=== PATIENT | male | born 1955 | race Hispanic/Latino ===

== ENCOUNTER 2020-04-02 18:40 | Inpatient (IN) | payer MEDICARE ==
[~2020-04-02] VITALS: Ht 180.3 cm; Wt 90.7 kg
[2020-04-02 19:25] LABS: BASOPHILS % 0.4 % (0.0-1.0); EOSINOPHILS # (AUTO) 0.2 (0.0-0.4); EOSINOPHILS % 2.3 % (0.0-6.0); HEMOGLOBIN 13.9 g/dL (14.0-18.0); LYMPHOCYTES # (AUTO) 1.7 (1.0-3.2); LYMPHOCYTES % 21.8 % (18.0-39.1); MEAN CORPUSCULAR HEMOGLOBIN 28.5 pg (28-32); MEAN CORPUSCULAR HGB CONC 33.1 g/dL (31-35); MEAN CORPUSCULAR VOLUME 86.2 fL (81-99); MONOCYTES # (AUTO) 0.9 (0.2-0.8); MONOCYTES % 11.8 % (4.4-11.3); NEUTROPHILS % 63.1 % (38.7-80.0); PLATELET COUNT 298 x10e3/uL (140-360); RED BLOOD COUNT 4.87 x10e6/uL (4.3-5.7); RED CELL DISTRIBUTION WIDTH 13.8 % (11.7-14.4)
[2020-04-02 19:34] LABS: INR 0.95; PROTHROMBIN TIME 13.2 seconds (11.9-14.5)
[2020-04-02 19:35] LABS: PARTIAL THROMBOPLASTIN TIME 27.9 seconds (23.8-35.5)
[2020-04-02 19:42] LABS: ALANINE AMINOTRANSFERASE 20 IU/L (0-55); ALBUMIN 3.8 g/dL (3.5-5.0); ALBUMIN/GLOBULIN RATIO 1.2 (0.8-2.0); ALKALINE PHOSPHATASE 95 IU/L (40-150); ANION GAP 11.8 mmol/L (8-16); BLOOD UREA NITROGEN 19 mg/dL (7-26); BUN/CREATININE RATIO 22 (6-25); CALCIUM 9.3 mg/dL (8.4-10.2); CARBON DIOXIDE 25 mmol/L (22-29); CHLORIDE 108 mmol/L (98-107); CREATINE KINASE 152 IU/L (30-200); CREATININE, SERUM 0.88 mg/dL (0.72-1.25); EST GLOMERULAR FILTRATION RATE > 60 ML/MIN (60-); GLUCOSE 129 mg/dL (74-118); POTASSIUM 3.8 mmol/L (3.5-5.1); SODIUM 141 mmol/L (136-145)
[2020-04-02 21:52] VITALS: BP 123/76
[2020-04-02 21:53] VITALS: BP 123/76
[2020-04-03] VITALS (12 sets, daily range): BP systolic 97–154; BP diastolic 58–92
[2020-04-03 05:26] LABS: CREATINE KINASE 98 IU/L (30-200)
[2020-04-03] MEDS ORDERED: ACETAMINOPHEN 325 MG TAB PO PRN (06:30)
[2020-04-03] MEDS ORDERED: DOCUSATE SODIUM 100 MG CAP PO PRN (06:30)
[2020-04-03] MEDS ORDERED: ZOLPIDEM TARTRATE 5 MG TAB PO PRN (06:30)
[2020-04-03] MEDS ORDERED: ONDANSETRON HCL INJ 2MG/ML 2ML 2 MG/ML VIAL IV PRN (06:30)
[2020-04-03] MEDS: FAMOTIDINE 20 MG TAB PO SCH ×3 (07:30→17:07)
[2020-04-03] MEDS ORDERED: ASPIRIN 81 MG CHEW TAB PO SCH (09:00)
[2020-04-03] MEDS: SODIUM CHLORIDE 0.9% 1000ML 1,000 ML IV SCH ×2 (10:00)
[2020-04-03] MEDS ORDERED: SODIUM CHLORIDE 0.9% 1000ML 1,000 ML ONE (10:36)
[2020-04-03] MEDS ORDERED: HEPARIN SOD (PORCINE) 1000 UNIT/ML 30ML ONE (10:36)
[2020-04-03] MEDS ORDERED: HEPARIN SOD/SOD CHLORIDE 2,000 ML ONE (10:36)
[2020-04-03] MEDS ORDERED: LIDOCAINE HCL 2% LOCAL 20 ML VIAL ONE (10:36)
[2020-04-03] MEDS ORDERED: IOPAMIDOL 370 MG/ML 200 ML INFUS..BTL INJ ONE ×2 (10:36→11:24)
[2020-04-03] MEDS ORDERED: NITROGLYCERIN/D5W 200 MCG/ML 250 ML ONE (10:37)
[2020-04-03] MEDS ORDERED: VERAPAMIL HCL 2.5 MG/ML 2 ML VIAL ONE (10:37)
[2020-04-03] MEDS ORDERED: MIDAZOLAM HCL 2 MG/2 ML VIAL ONE ×2 (10:57→11:35)
[2020-04-03] MEDS ORDERED: ONDANSETRON HCL INJ 2MG/ML 2ML 2 MG/ML VIAL ONE (10:57)
[2020-04-03] MEDS ORDERED: FENTANYL CITRATE/PF 100MCG/2 ML INJ ONE ×2 (10:58)
[2020-04-03] MEDS ORDERED: ASPIRIN 325 MG TAB ONE (11:41)
[2020-04-03] MEDS ORDERED: CLOPIDOGREL BISULFATE 75 MG TAB ONE (11:41)
[2020-04-03] MEDS ORDERED: MORPHINE SULFATE INJ 4 MG/ML INJ 1ML ONE ×2 (12:36→12:59)
[2020-04-03] MEDS ORDERED: NITROGLYCERIN 0.4 MG SUBL ONE (12:36)
[2020-04-03] MEDS ORDERED: ATROPINE SULFATE 0.1 MG/ML 10ML SYR ONE (12:54)
[2020-04-03 15:30] LABS: CREATINE KINASE MB 2.3 ng/mL (0-5.0)
[2020-04-03] MEDS ORDERED: ENOXAPARIN SOD INJ 40 MG/0.4 ML SYR SC SCH (17:00)
[2020-04-03] MEDS ORDERED: PLAVIX75 MG PO (17:38)
== END 2020-04-03 19:09 | disposition home or self-care (01) | DRG 247 ==
LOC: ER 19:35 → ERHOLD 20:11 → IMCU 21:07
PROVIDERS: ADMIT Internal Medicine; ATTEND Internal Medicine
PROC: 027034Z Dilation of Coronary Artery, One Artery with Drug-eluting Intraluminal Device, Percutaneous Approach (ICD-10-PCS; principal; 2020-04-03)
PROC: 4A023N7 Measurement of Cardiac Sampling and Pressure, Left Heart, Percutaneous Approach (ICD-10-PCS; 2020-04-03)
PROC: B2111ZZ Fluoroscopy of Multiple Coronary Arteries using Low Osmolar Contrast (ICD-10-PCS; 2020-04-03)
PROC: B2151ZZ Fluoroscopy of Left Heart using Low Osmolar Contrast (ICD-10-PCS; 2020-04-03)
DX: I25.110 Atherosclerotic heart disease of native coronary artery with unstable angina pectoris (principal); I50.22 Chronic systolic (congestive) heart failure; R73.03 Prediabetes; I49.8 Other specified cardiac arrhythmias; E66.9 Obesity, unspecified; Z68.27 Body mass index [BMI] 27.0-27.9, adult; Z95.5 Presence of coronary angioplasty implant and graft; I25.10 Atherosclerotic heart disease of native coronary artery without angina pectoris; I11.0 Hypertensive heart disease with heart failure; I25.2 Old myocardial infarction; Z11.59 Encounter for screening for other viral diseases
CPT/HCPCS: 36415; 71046; 75605; 80053; 80061; 82550; 82553; 83036; 84484; 85025; 85610; 85730; 92921; 92928; 93005; 93306; 93454; 99152; 99153; 99284; C1887; C1894; J1644; J1650; J2001; J2250; J2270; J2405; J3010; J7030; Q9967; U0002

== ENCOUNTER 2020-04-10 19:37 | Emergency (ER) | payer MEDICARE ==
[~2020-04-10] VITALS: Ht 170.2 cm; Wt 90.7 kg
[~2020-04-10 19:37] MED LIST: PLAVIX75 MG PO
--- NOTE | 2020-04-10 20:26 | Emergency Department Note ---
History of Present Illnes History of Present Illness Chief Complaint: General Medicine Complaints History of Present Illness This is a 65 year old male s/p PCI presents to the ED for R groin pain s/p 1 week Historian: Patient Arrival Mode: Car Onset (how long ago): week(s) (1) Location: R groin Radiation: Reports non-radiation Severity: mild Onset quality: gradual Duration (how long): week(s) (1) Timing of current episode: constant Progression: unchanged Chronicity: new Context: Reports recent surgery Relieving factors: none Exacerbating factors: none Associated symptoms: Denies denies other symptoms, Denies confusion, Denies chest pain, Denies cough, Denies diaphoresis, Denies fever/chills, Denies headaches, Denies loss of appetite, Denies malaise, Denies nausea/vomiting, Denies rash, Denies seizure, Denies shortness of breath, Denies syncope, Denies weakness, Denies other Treatments prior to arrival: none Past Medical/Family History Physician Review I have reviewed the patient's past medical and family history. Any updates have been documented here. Past Medical History Recent Fever: No Clinical Suspicion of Infectio: No New/Unexplained Change in Ment: No Past Medical History: Hypertension, Diabetes, CHF, NH, Depression, Hyperlipedemia Past Surgical History: PCI Social History Smoking Cessation: Never Smoker Alcohol Use: None Any Illegal Drug Use: No Review of Systems Review of Systems Constitutional: Reports no symptoms EENTM: Reports no symptoms Cardiovascular: Reports no symptoms Respiratory: Reports no symptoms Gastrointestinal: Reports no symptoms Genitourinary: Reports no symptoms Musculoskeletal: Reports no symptoms Integumentary: Reports ecchymosis Neurological: Reports no symptoms Psychological: Reports no symptoms Endocrine: Reports no symptoms Hematological/Lymphatic: Reports no symptoms Physical Exam Related Data Allergies: Coded Allergies: No Known Allergies (Unverified , 04/02/20) Vital signs reviewed: Yes Physical Exam CONSTITUTIONAL Constitutional: Present well-developed, Present well-nourished HENT HENT: Present normocephalic, Present atraumatic, Present oropharynx clear/moist, Present nose normal HENT L/R: Present left ext ear normal, Present right ext ear normal EYES Eyes: Reports PERRL, Reports conjunctivae normal NECK Neck: Present ROM normal PULMONARY Pulmonary: Present effort normal, Present breath sounds normal CARDIOVASCULAR Cardiovascular: Present regular rhythm, Present heart sounds normal, Present capillary refill normal, Present normal rate GASTROINTESTINAL Abdominal: Present soft, Present nontender, Present bowel sounds normal GENITOURINARY Genitourinary: Present exam deferred SKIN Skin: Present warm, Present dry, Present other (6 x 2 contusion R groin) MUSCULOSKELETAL Musculoskeletal: Present ROM normal NEUROLOGICAL Neurological: Present alert, Present oriented x 3, Present no gross motor or sensory deficits PSYCHOLOGICAL Psychological: Present mood/affect normal, Present judgement normal Results Imaging Imaging results reviewed: Yes Impressions R groin arterial duplex : neg for pseudoaneuyrsm Assessment & Plan Medical Decision Making MDM Diff Dx : pseudoaneurysm Assessment & Plan Final Impression: (1) Contusion of groin, right Depart Disposition: HOME, SELF-jail Meds Reported Medications Clopidogrel Bisulfate* (PLAVIX) 75 Mg Tablet, 75 MG PO DAILY, #30 TAB 04/03/20 FELICIA GRIFFIN DO Apr 10, 2020 20:26
[2020-04-10 21:58] VITALS: BP 120/65
--- OUTSIDE RECORDS SUMMARY | 2020-04-10 22:07 | XMS REPORT | Continuity of Care Document ---
Author Author [facility] t Organization [facility] [place], [place] Address [address] [place] [address] Phone Unavailable Care Team Providers Care Lithographic Artist Name Role Phone Rajat PATEL PCP Loyda Tai Attphys Unavailable Nilsa Flores Attphys Leslie REINOSO, M Nasser Attphys Rohan REINOSO, A Lien Attphys Rubi REINOSO, Jony Attphys Payers Payer Name Policy Type Policy Number Effective Date Expiration Date S mariam I and love and you [employer] HE[employer]PRING [id number] 20-PresentMaps Contracted [id number] 2020 00:00:00 [facility] HEALTH SPRING [facility]ONCIGULF [facility] HEALTH SPRI NG [id number] [address] xxxxxxxx 2020 00:00:00 [facility] YPDV-AEDTYEX-WUR [id number]/[id number] [place] [address] xxxxxxx 2020 00:00:00 2030 2 3:59:59 [facility] Problems Condition Name Condition Details Condition Category Status Onset Date Resolution Date Last Treatment Date Treating Clinician Comments Source Vertigo Vertigo Disease Active 2017-02-28 00:00:00 [facility] Bilateral hearing loss Bilateral hearing loss Disease Active 2017-02-28 00:00:00 [facility] Heart failure, NYHA class 3 Heart failure, NYHA class 3 Disease Active 2016-12-14 00:00:00 Overview: 30 -35% mildly dilated LV, inferior/anterolateral RWMA [facility] Internal hemorrhoids Internal hemorrhoids Disease Active 00:00:00 [facility] 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 Prediabetes Prediabetes Disease Active 2016-07-29 00:00:00 [facility] Chest wall pain Chest wall pain Disease Active 2016-02-18 00:00:00 [facility] CAD in [place] artery CAD in [place] artery Disease Active 00:00:00 [facility] Shortness of breath Problem Active [facility] Myocardial infarction Myoc ardial infarction Active Problem 07/09/2015 [facility] Problem Active 2015-07-09 03:17: 59 [facility] Sewell Diabetes mellitus Diab etes mellitus Active Problem 07/09/2015 [facility] Problem Active 2015-07-09 03:17:59 Anthony Sewell Coronary atherosclerosis of [place] coronary vessel Coronary atherosclerosis of [place] coronary vessel Active Problem 07/09/2015 [facility] Problem Active 2015-07-09 03:17[facility] Ankl e pain Active Problem 07/09/2015 [facility] Problem Active 2015-07-09 03:17:59 [facility] Allergies, Adverse Reactions, Alerts Allergy Name Allergy Type Status Severity Reaction(s) Onset Date Inacti ve Date Treating Clinician Comments Source JodiA. N.KHelen.A. Active Info Not Available 2015-06-10 00:00:00 [facility] Social History Social Habit Start Date Stop Date Quantity Comments Source Sex Assigned At [facility] Alcohol intake 2020-01-29 00:00:00 2020-01-29 00:00:00 Current non-drinker of alcohol (finding) [facility] History SDOH Food Worry 2018-01-10 00:00:00 2018-01-10 00:00:00 1 [facility] History SDOH Food Scarcity 2018-01-10 00:00:00 2018-01-10 00:00:00 1 [facility] Caffeine: 2015-06-10 00:00:00 2015-06-10 00:00:00 [facility] Smoking Status Start Date Stop Date Source Never smoker [facility] Medications Ordered Medication Name Filled Medication Name Start Date Stop Da te Current Medication? Ordering Clinician Indication Dosage Frequency Signature (SIG) Comments Components Source metoprolol succinate (TOPROL XL) 25 mg extended release tabl et 2020-01-14 00:00:00 2021-01-08 23:59:00 Yes CAD in [place] artery 25mg QD Take 1 tablet by mouth daily for 360 days. [facility] lisinopriL (PRINIVIL, ZESTRIL) 20 mg tablet 2019 00:00:00 2021-01-08 23:59:00 Yes CAD in [place] artery 20mg QD Take 1 tablet by mouth daily for 360 days. [facility] nitroGLYCERIN (NITROSTAT) 0.4 mg sublingual tablet 2019-12 00:00:00 Yes Chest pain, unspecified type Dis solve 1 tablet under the tongue every 5 minutes as needed, up to 3 times. If chest pain persists, call 911. [facility] lisinopriL (PRINIVIL) 5 mg tablet 2020-01-07 00:00:00 2019 00:00:00 No CAD in [place] artery 10mg QD Take 2 tablets by mouth daily . [facility] clopidogreL (PLAVIX) 75 mg tablet 2019-08-07 00:00:00 Yes CAD in [place] artery 75mg QD Take 1 tablet by mouth daily. [facility] atorvastatin (LIPITOR) 80 mg tablet 2019-08-07 00:00:00 Yes CAD in [place] artery 80mg Take 1 tablet by mouth at bedtime nightly. [facility] isosorbide mononitrate (IMDUR) 30 mg extended release tablet 2019-08-07 00:00:00 Yes CAD in [place] artery 30mg QD Take 1 tablet b y mouth daily. [facility] spironolactone (ALDACTONE) 25 mg tablet 2019-08-07 00:00:00 Yes CAD in [place] artery 25mg QD Take 1 tablet by mouth daily. [facility] famotidine (PEPCID) 20 mg tablet 2019-08-07 00:00:00 Yes Gastroesophageal reflux disease, esophagitis presence not specified 20mg Q.5D Take 1 tablet by mouth 2 times daily. [facility] metFORMIN (GLUCOPHAGE XR) 500 mg ER extended release tablet 2019-08-07 00:00:00 Yes Prediabetes 500mg QD Take 1 t ablet by mouth daily (with breakfast). [facility] mometasone (NASONEX) 50 mcg/actuation nasal spray 2019-08-07 00:00:00 Yes Allergic rhinitis, unspecified seasonality, unspecified trigger 2{spray} QD 2 Sprays by each nostril route daily. [facility] lisinopriL (PRINIVIL) 5 mg tablet 2019-08-07 00:00:00 2019 00:00:00 No CAD in [place] artery 10mg QD Take 2 tablets by mouth daily . [facility] tiZANidine (ZANAFLEX) 4 mg tablet 2019-02-07 00:00:00 Yes Cervical muscle pain 4mg Take 1 tablet by mouth every 12 hours as needed for Muscle Spasms. [facility] metFORMIN (GLUCOPHAGE XR) 500 mg ER extended release tablet 2019-02-07 00:00:00 2019-08-07 00:00:00 No Prediabetes 500mg QD Take 1 tablet by mouth daily (with breakfast). [facility] amitriptyline (ELAVIL) 25 mg tablet 2018-12-17 00:00:00 Yes Cervical muscle pain 25mg Take 1 tablet by mouth at bedtime nightly. [facility] clopidogrel (PLAVIX) 75 mg tablet 2018-12-12 00:00:00 2019 00:00:00 No CAD in [place] artery 75mg QD Take 1 tablet by mouth daily. [facility] atorvastatin (LIPITOR) 80 mg tablet 2018-12-12 00:00:0 0 2019-08-07 00:00:00 No CAD in [place] artery 80mg Take 1 tablet by mouth at b edtime nightly. [facility] isosorbide mononitrate (IMDUR) 30 mg extended release tablet 2018-12-12 00:00:00 2019-08-07 00:00:00 No CAD in [place] artery 30mg QD Take 1 tablet by mouth daily. [facility] lisinopril (PRINIVIL) 5 mg tablet 2018-12-12 00:00:00 2019 00:00:00 No CAD in [place] artery 10mg QD Take 2 tablets by mouth daily . [facility] spironolactone (ALDACTONE) 25 mg tablet 00:00:00 2019-08-07 00:00:00 No CAD in [place] artery 25mg QD Take 1 tablet by m outh daily. [facility] famotidine (PEPCID) 20 mg tablet 2018-12-12 00:00:00 2019-07 00:00:00 No Gastroesophageal reflux disease, esophagitis presence not specified 20mg Q.5D Take 1 tablet by mouth 2 times daily. [facility] zinc oxide 15 % Crea 2018-05-03 00:00:00 Yes Paronychia of great toe of right foot 1{application} Q.5D Apply 1 Application to affected area 2 times daily. [facility] acetaminophen-codeine (TYLENOL/CODEINE #3) 300-30 mg per tab let 2018-05-03 00:00:00 Yes Chronic tension-type headache, intractab le 1{tbl} Take 1 tablet by mouth daily as needed for Pain. [facility] gabapentin (NEURONTIN) 400 mg capsule 2018-02-21 00:00:00 Yes Cervical neck pain with evidence of disc disease 400mg Take 1 capsule by mouth 3 times daily (incr) (d/c 300 mg). [facility] meclizine (ANTIVERT) 25 mg Tab 2017-02-28 00:00:00 Yes Vertigo 25mg Take 1 tablet by mouth 3 times daily as needed ((For dizziness)). [facility] polyethylene glycol (GOLYTELY) 236-22.74-6.74 -5.86 gram ora l solution 2016-09-07 00:00:00 Yes Rectal bleeding Add lukewarm drinking water to the fill cherelle (4 liters) and shake. Drink as directed by your doctor.. [facility] clopidogrel 2015-07-09 03:17:59 Yes Wolf Davis 1 tab(s) [facility] atorvastatin 2015-07-09 03:17:59 Yes Wolf Davis 1 tab(s) [facility] metformin 2015-07-09 03:17:59 Yes Wolf Davis 1 tab(s) [facility] multivitamin 2015-07-09 03:17:59 Yes Wolf Davis 1 cap(s) [facility] aspirin 2015-07-09 03:17:59 Yes Wolf Davis 1 ta b(s) [facility] lisinopril 2015-06-01 00:00:00 Yes Wolf Davis 1 tab(s) [facility] Clopidogrel Bisulfate (Plavix) 75 Mg TABLET Clopidogre l Bisulfate (Plavix) 75 Mg TABLET Yes 75 Daily [facility] Immunizations Ordered Immunization Name Filled Immunization Name Date Status Comments Source Influenza, Vaccine <FLUCELVAX>(Preservative-Free) 2018-05-03 00:00:00 Completed [facility] PPV 23 (Pneumococcal Polysaccharide 23 Valent) 2017-10 00:00:00 Completed [facility] Herpes Zoster Vaccine In Clinic 2016-06-03 00:00:[address] [facility] Influenza Vaccine 2016-05-20 00:00:00 [facility] Vital Signs Vital Name Observation Time Observation Value Comments Source Body Temperature 2020-04-03 16:00:00 98.0 [degF] [facility] Heart Rate 2020-04-03 16:00:00 58 /min [facility] Respiratory rate 2020-04-03 16:00:00 20 /min [facility] BP Systolic 2020-04-03 16:00:00 154 mm[Hg] [facility] BP Diastolic 2020-04-03 16:00:00 86 mm[Hg] [facility] Oxygen saturation by Pulse oximetry 2020-04-03 16:00:00 97 /min [facility] BMI (Body Mass Index) 2020-04-02 21:49:00 27.9 kg/m2 [facility] Weight 2020-04-02 18:43:00 200 [lb_av] [facility] Heart rate 2020-01-29 09:25:00 52 /min [facility] Respiratory rate 2020-01-29 09:25:00 23 /min [facility] Oxygen saturation in Arterial blood by Pulse oximetry 01-28 09:25:00 100 /min [facility] Systolic blood pressure 2020-01-29 09:24:00 142 mm[Hg] [facility] Diastolic blood pressure 2020-01-29 09:24:00 87 mm[Hg] [facility] Body height 2020-01-29 07:54:00 180.3 cm [facility] Body weight 2020-01-29 07:54:00 88.451 kg [facility] BMI 2020-01-29 07:54:00 27.20 kg/m2 [facility] Body temperature 2020-01-14 10:45:00 37.22 [facility] Diastolic (mm Hg) 2015-06-10 20:00:00 [facility] orial [place]nel[place] Systolic (mm Hg) 2015-06-10 20:00:00 Chente rial [place] Weight 2015-06-10 20:00:00 [facility] Height 2015-06-10 20:00:00 [facility] Diastolic (mm Hg) 2015-06-01 20:30:00 [facility] [place] Systolic (mm Hg) 2015-06-01 20:30:00 [facility]te [facility] [place] Weight 2015-06-01 20:30:00 [facility] [place] Height 2015-06-01 20:30:00 [facility] Procedures Procedure Date / Time Performed Performing Clinician [facility] SARS-COV2/RT-PCR ([facility]) 2020-04-03 05:25:00 Phill Flores [facility] X-ray of chest, two views 2020-04-02 00:00:[address] [facility] MYOCARDIAL PERFUSION SPECT REST/STRES MULTIPLE 2020-01-29 10 :25:50 Lien Fuchs [facility] STRESS TREADMILL - TRACING ONLY (PROSOLVE) 2020-01-29 0 9:10:10 Steve Smith [facility] NON-INVASIVE PROC ECHOCARDIOGRAM 2-D W/O CONTRAST (PROSOLVE) 2019-12-25 07:06:00 Rubi [facility] FECAL OCCULT BLOOD 2019-08-14 13:35:00 Jony Braga [facility] alth XRAY CHEST 2 VIEWS 2019-08-07 13:04:15 Jony Braga alth Plan of Care Planned Activity Planned Date Details Comments Source Future Scheduled Test 2026-09-12 00:00:00 Screening for dilshad gnant neoplasm of colon (procedure) [code = 108904457] [facility] Future Scheduled Test 2020-02-27 00:00:00 IMM Influenza Seas onal Feb to July (>/= 19 yrs) [code = IMM Influenza Seasonal Feb to July (>/= 19 yrs)] [facility] Scheduled Test 2020-01-28 00:00:00 INFLUENZA VACCINE (#1) [code = INFLUENZA VACCINE (#1)] [facility] Future Scheduled Test 2020-01-28 00:00:00 Medicare IPPE (WEL COME TO MEDICARE) [code = Medicare IPPE (WELCOME TO MEDICARE)] [facility] Future Scheduled Test 2019-12-18 00:00:00 CORONARY ARTERY DI SEASE AGE 18 AND UP [code = CORONARY ARTERY DISEASE AGE 18 AND UP] [facility] Scheduled Test 1991 00:00:00 Lipid panel (proce dure) [code = 94878226] [facility] Future Scheduled Test 1956 00:00:00 Screening for dilshad gnant neoplasm of colon (procedure) [code = 464831134] [facility] Instructions Puncture Wound [facility] Encounters Start Date/Time End Date/Time Encounter Type Admission Type Attendi [facility] Facility Care Department Encounter ID Source 2020-04-02 20:11:00 2020-04-03 19:09:00 Discharged Inpatient 1 Robby Tai [facility] [id number] [facility] 2019-04-04 00:00:00 2019-04-04 00:00:00 Outpatient [facility] [id number] [facility] 2019-02-07 11:48:59 2019-02-07 11:48:59 Outpatient [facility] [id number] [facility] 2019-02-07 10:37:27 2019-02-07 10:37:27 Outpatient [facility] [id number] [facility] 2019-02-07 00:00:00 2019-02-07 00:00:00 Outpatient [facility] [id number] [facility] 2019-01-03 00:00:00 2019-01-03 00:00:00 Outpatient [facility] [id number] [facility] 2019-01-01 11:32:52 2019-01-01 11:32:52 Outpatient [facility] [id number] [facility] 2018-12-21 00:00:00 2018-12-21 00:00:00 Outpatient [facility] [id number] [facility] 2018-12-20 08:01:59 2018-12-20 08:01:59 Outpatient [facility] [id number] [facility] 2018-12-17 15:16:47 2018-12-17 15:16:47 Outpatient [facility] [id number] [facility] 2018-12-17 13:11:39 2018-12-17 13:11:39 Outpatient [facility] [id number] [facility] 2018-12-17 00:00:00 2018-12-17 00:00:00 Outpatient [facility] [id number] [facility] 2018-12-12 14:26:05 2018-12-12 14:26:05 Outpatient [facility] [id number] [facility] 2018-09-14 00:00:00 2018-09-14 00:00:00 Outpatient [facility] [id number] [facility] 2018-07-31 00:00:00 2018-07-31 00:00:00 Outpatient [facility] [id number] [facility] 2018-06-15 16:04:02 2018-06-15 16:04:02 Outpatient [facility] [id number] [facility] 2018-06-06 00:00:00 2018-06-06 00:00:00 Outpatient [facility] [id number] [facility] 2018-06-04 13:37:19 2018-06-04 13:37:19 Outpatient [facility] [id number] [facility] 2018-05-08 00:00:00 2018-05-08 00:00:00 Outpatient [facility] [id number] [facility] 2018-05-04 10:50:52 2018-05-04 10:50:52 Outpatient [facility] [id number] [facility] 2018-05-03 17:12:19 2018-05-03 17:12:19 Outpatient [facility] [id number] [facility] 2018-04-25 10:29:19 2018-04-25 10:29:19 Outpatient [facility] [id number] [facility] 2018-04-25 08:14:14 2018-04-25 08:14:14 Outpatient [facility] [id number] [facility] 2018-04-25 00:00:00 2018-04-25 00:00:00 Outpatient [facility] [id number] [facility] 2018-04-23 00:00:00 2018-04-23 00:00:00 Outpatient [facility] [id number] [facility] 2018-04-13 11:44:39 2018-04-13 11:44:39 Outpatient [facility] [id number] [facility] 2018-03-23 11:54:03 2018-03-23 11:54:03 Outpatient [facility] [id number] [facility] 2018-03-23 09:52:34 2018-03-23 09:52:34 Outpatient [facility] [id number] [facility] 2018-03-22 14:26:02 2018-03-22 14:26:02 Outpatient [facility] [id number] [facility] 2018-02-21 09:16:44 2018-02-21 09:16:44 Outpatient [facility] [id number] [facility] 2018-02-08 07:34:19 2018-02-08 07:34:19 Outpatient [facility] [id number] [facility] 2018-02-03 00:00:00 2018-02-03 00:00:00 Outpatient [facility] [id number] [facility] 2018-01-10 15:42:57 2018-01-10 15:42:57 Outpatient [facility] [id number] [facility] 2018-01-10 13:57:35 2018-01-10 13:57:35 Outpatient [facility] [id number] [facility] 2017-11-21 08:15:51 2017-11-21 08:15:51 Outpatient [facility] [id number] [facility] 2017-10-17 00:00:00 2017-10-17 00:00:00 Outpatient [facility] [id number] [facility] 2017-06-07 00:00:00 2017-06-07 00:00:00 Outpatient [facility] [id number] [facility] 2017-05-18 00:00:00 2017-05-18 00:00:00 Outpatient [facility] [id number] [facility] 2017-03-31 00:00:00 2017-03-31 00:00:00 Outpatient [facility] [id number] [facility] 2017-03-14 10:10:50 2017-03-14 10:10:50 Outpatient [facility] [id number] [facility] 2017-02-28 08:07:30 2017-02-28 08:07:30 Outpatient [facility] [id number] [facility] 2017-02-17 07:16:26 2017-02-17 07:16:26 Outpatient [facility] [id number] [facility] 2017-02-13 00:00:00 2017-02-13 00:00:00 Outpatient [facility] [id number] [facility] 2017-02-03 14:07:04 2017-02-03 14:07:04 Outpatient [facility] [id number] [facility] 2017-01-19 00:00:00 2017-01-19 00:00:00 Outpatient [facility] [id number] [facility] 2017-01-19 00:00:00 2017-01-19 00:00:00 Outpatient [facility] [id number] [facility] 2017-01-16 09:59:09 2017-01-16 09:59:09 Outpatient [facility] [id number] [facility] 2016-12-14 15:33:46 2016-12-14 15:33:46 Outpatient [facility] [id number] [facility] 2016-12-14 12:57:40 2016-12-14 12:57:40 Outpatient [facility] [id number] [facility] 2016-12-07 08:50:18 2016-12-07 08:50:18 Outpatient [facility] [id number] [facility] 2016-11-03 16:08:10 2016-11-03 16:08:10 Outpatient [facility] [id number] [facility] 2016-10-27 12:37:19 2016-10-27 12:37:19 Outpatient [facility] [id number] [facility] 2016-10-13 09:42:14 2016-10-13 09:42:14 Outpatient [facility] [id number] [facility] 2016-10-13 08:13:01 2016-10-13 08:13:01 Outpatient [facility] [id number] [facility] 2016-09-07 08:30:58 2016-09-07 08:30:58 Outpatient [facility] [id number] [facility] 2015-06-10 14:00:00 2015-06-10 14:00:00 [facility] [id number] 11:07:00 2015-06-04 11:07:00 [facility] [id number] [facility] 2015-06-01 14:30:00 2015-06-01 14:30:00 [facility] [id number] [employer] [facility] Results Test Description Test Time Test Comments Results Result Comments Source SARS-CoV2/RT-PCR ([facility]) 2020-04-03 18:57:00 Test Item SARS-COV2/RT-PCR (test code = 82021-8) Negative N ot Detected, Negative, See external report for linked test SARS-COV-2 PERFORMING LAB (test code = 11571-0) [facility] NESTOR (test code = NESTOR) Negative result for this elo t determines that SARS-CoV-2 RNA was not present in the specimen above the Limit of Detection (LOD). However, Negative results do not preclude SARS-CoV-2 infection and should not be used as the sole basis for treatment or patient management decisions. Negative results must be combined with clinical observations, patient history, and epidemiological information. A false negative result may occur if a specimen is improperly collected, transported or handled. A false negative result should be considered if patient's recent exposures or clinical presentation indicate that COVID-19 (SARS-CoV-2) is likely and diagnostic tests for other causes of illness are negative. Re-testing should be considered in cases of suspected false negatives. The limit of detection for this assay is 100 copies/mL. This SARS CoV-2 test is a real-time RT-PCR test intended for the qualitative detection of nucleic acid from SARS-CoV-2 in a nasopharyngeal swab specimen collected from individuals suspected of COVID-19 by their healthcare provider. This test has not been Food and Drug Administration (FDA) cleared or approved. This is a modified version of an approved Emergency Use Authorization (EUA) and is in the process of review by the FDA. Once authorized by the FDA, the issued EUA will be effective until the declaration that circumstances exist justifying the authorization of the emergency use of in vitro diagnostic tests for detection and/or diagnosis of COVID-19 is terminated under Section 564(b)(2) of the Act or the EUA is revoked under Section 564(g) of the Act. Testing was performed using the [place] SARS-CoV-2 assay. Fact Sheet for Healthcare Providers:https://www.LinkCloud/sulaiman/CV_RLMZ-SjW-1_XDB_Htjo_Eodcs_71-53437 4.pdf Fact Sheet for Healthcare Patients:https://www.[employer].[place]/sulaiman/UQ_NNHB-FrV-3_Sokogdx_Meau_Eprpo_WH_17-110886K8.pdf Performing Laboratory:[facility] [place] [address] [facility])2020-04-03 18:57:00* Test Item Value Reference Range Interpretation Comments SARS-COV2/RT-PCR (test code = 1227634) Negative N ot Detected, Negative, See external report for linked test SARS-COV-2 PERFORMING LAB (test code = 6510282) [facility] Negative result for this test determines that SARS-CoV-2 RNA was not present in the specimen above the Limit of Detection (LOD). However, Negative results do n ot preclude SARS-CoV-2 infection and should not be used as the sole basis for tr eatment or patient management decisions. Negative results must be combined with clinical observations, patient history, and epidemiological information. A false negative result may occur if a specimen is improperly collected, transported or handled. A false negative result should be considered if patient's recent expo sures or clinical presentation indicate that COVID-19 (SARS-CoV-2) is likely and diagnostic tests for other causes of illness are negative. Re-testing should be considered in cases of suspected false negatives.The limit of detection for this assay is 100 copies/mL.This SARS CoV-2 test is a real-time RT-PCR test intended for the qualitative detection of nucleic acid from SARS-CoV-2 in a nasopharyn geal swab specimen collected from individuals suspected of COVID-[address] [facility] provider.This test has not been Food and Drug Administration (FDA) clear ed or approved. This is a modified version of an approved Emergency Use Authori zation (EUA) and is in the process of review by the FDA. Once authorized by [facility] FDA, the issued EUA will be effective until the declaration that circumstances exist justifying the authorization of the emergency use of in vitro diagnostic tests for detection and/or diagnosis of COVID-19 is terminated under Section 564 (b)(2) of the Act or the EUA is revoked under Section 564(g) of the Act.Testing was performed using the [place] SARS-CoV-2 assay.Fact Sheet for Healthcare Provid ers:https://www.molecular.wor[place]ton/sulaiman/MO_CKIP-VqW-6_XHW_Vosu_Zpjps_10-789630.pdfF act Sheet for Healthcare Patients:https://www.molecular.wor[place]/sulaiman/XS_SNYE-BjL-2 _Patient_Fact_Sheet_EN_51-522661L7.pdfPerforming Laboratory:[place] [address] [address] [place], [place] [address]Gntxq or plasma creatine kinase measurement (enzymatic activity/volume)2020-04-03 14:51:00* Test Item Value Reference Range Interpretation Comments Creatine Kinase (test code = 2157-6) 83 [IU]/L 30-200 [facility] creatine kinase MB measurement (mass/volume)2020-04-03 14:51:00* Test Item Value Reference Range Interpretation Comments Creatine Kinase MB (test code = 04643-0) 2.30 ng/mL 0-5.0 [facility] HospitalTrop[facility] I measurement by highly sensitive enzyme flrsbdedayw9315-79-53 14:51:00* Test Item Value Reference Range Interpretation Comments Troponin I (test code = 20131-2) 0.016 ng/mL 0-0.300 [facility] HospitalFluoroscopic procedure less than one hour hdyxiogg3319-39-84 04:35:00* Test Item Value Reference Range Interpretation Comments Hemoglobin A1c Percent (test code = Hemoglobin A1c Percent) 6.0 % 4.0-7.0 [facility] plasma triglyceride measurement (mass/volume)2020-04-03 04:35:00* Test Item Value Reference Range Interpretation Comments Triglycerides Level (test code = 2571-8) 78 mg/dL 0-149 [facility] or plasma cholesterol measurement (mass/volume)2020-04-03 04:35:00* Test Item Value Reference Range Interpretation Comments Cholesterol Level (test code = 2093-3) 128 mg/dL 0-199 Less than 200 mg/dL Low Eqyo717 - 239 mg/dL Borderline Kvjp171 m g/dl and greater High Risk [facility] or plasma cholesterol in LDL measurement (mass/volume) 2020-04-03 04:35:00* Test Item Value Reference Range Interpretation Comments LDL Cholesterol (test code = 2089-1) 70 mg/dL 60-130 [facility] or plasma cholesterol in HDL measurement (mass/volume)2020-04-03 04:35:00* Test Item Value Reference Range Interpretation Comments HDL Cholesterol (test code = 2085-9) 42 mg/dL 40-60 [facility] or plasma total cholesterol/cholesterol in HDL mass yjgch5626-26-64 04:35:00* Test Item Value Reference Range Interpretation Comments Cholesterol/HDL Ratio (test code = 9830-1) 3.0 3.9-4.7 [facility] HospitalCHES 2 [id number] 19:45:[address] [facility] : 1955 Sex: M [place] [id number] Patient Name: SYED ABDI MR #: [id number] : 1955 Age/Sex: 65/M Req #: [id number] [facility] Physician: Ordered by: Robby Tai MD Report #: [id number] Location: Room/Bed: Procedure: [id number] DX/CHEST 2 VIEWS Exam Date: Exam Time: 1929 REPORT STATUS: Signed EXAMINATION: CHEST 2 VIEWS IND ICATION: Chest pain. COMPARISON: None FINDINGS: TUBES and LINES: None. LUNGS: Normal lung volumes. Lungs are clear. No consolida tions. PLEURA: No pleural effusion or pneumothorax. HEART AND MEDIAST INUM: The cardiomediastinal silhouette is unremarkable. BONES AND SOFT TISSUES: No acute osseous lesion. Soft tissues are unremarkable. UPPER ABDOMEN: No free air under the diaphragm. IMPRESSION: No acute t horacic radiographic abnormality. Signed by: Fabiola Doshi MD on 04/02/20 7:50 PM Dictated By: FABIOLA DOSHI MD 49 Transcribed By: ALEC on 04/02/201949 C OPY TO: ROBBY TAI MD Blood leukocytes automated count (number/volume)2020-04-02 18:55:00* Test Item Value Reference Range Interpretation Comments White Blood Count (test code = 6690-2) 7.90 10*3/uL 4.8-10.8 [facility] HospitalBlood erythrocytes automated count (number/volume)2020-04-02 18:55:00* Test Item Value Reference Range Interpretation Comments Red Blood Count (test code = 789-8) 4.87 10*6/mL 4.3-5.7 [facility] HospitalBlood hemoglobin measurement (moles/volume)2020-04-02 18:55:00* Test Item Value Reference Range Interpretation Comments Hemoglobin (test code = 86740-6) 13.9 g/dL 14.0-18.0 [facility] HospitalAutomated blood hematocrit (volume fraction)2020-04-02 18:55:00* Test Item Value Reference Range Interpretation Comments Hematocrit (test code = 4544-3) 42.0 % 38.2-49.6 [facility] HospitalAutomated erythrocyte mean corpuscular etgjsn6752-48-70 18:55:00* Test Item Value Reference Range Interpretation Comments Mean Corpuscular Volume (test code = 787-2) 86.2 81-99 [facility] HospitalAutomated erythrocyte mean corpuscular hemoglobin (mass per erythrocyte)2020-04-02 18:55:00* Test Item Value Reference Range Interpretation Comments Mean Corpuscular Hemoglobin (test code = 785-6) 28.5 pg 28-32 [facility] HospitalAutomated erythrocyte mean corpuscular hemoglobin concentration measurement (mass/volume)2020-04-02 18:55:00* Test Item Value Reference Range Interpretation Comments Mean Corpuscular Hemoglobin Concent (test code = 786-4) 33.1 g/dL 31-35 [facility] HospitalRDW RtcEm-Aqj3500-32-05 18:55:00* Test Item Value Reference Range Interpretation Comments Red Cell Distribution Width (test code = 05175-0) 13.8 % 11.7 -14.4 [facility] HospitalAutomated blood platelet count (count/volume)2020-04-02 18:55:00* Test Item Value Reference Range Interpretation Comments Platelet Count (test code = 777-3) 298 10*3/uL 140-360 [facility] neutrophil count as percentage of total awkixldcuq2403-74-57 18:55:00* Test Item Value Reference Range Interpretation Comments Neutrophils (%) (Auto) (test code = 87791-7) 63.1 % 38.7-80.0 [facility] HospitalAutomated blood lymphocyte count as percentage ot total wdedgyzhfd6524-97-13 18:55:00* Test Item Value Reference Range Interpretation Comments Lymphocytes (%) (Auto) (test code = 736-9) 21.8 % 18.0-39.1 [facility] HospitalAutatrium healthed blood monocyte count as percentage of total zfamsgdqqh4145-52-76 18:55:00* Test Item Value Reference Range Interpretation Comments Monocytes (%) (Auto) (test code = 5905-5) 11.8 % 4.4-11.3 [facility] HospitalAutomated blood eosinophil count as percentage of total yapprrefbd4025-74-96 18:55:00* Test Item Value Reference Range Interpretation Comments Eosinophils (%) (Auto) (test code = 713-8) 2.3 % 0.0-6.0 [facility] HospitalAutomated blood basophil count as percentage of total gzjptniomv1970-54-17 18:55:00* Test Item Value Reference Range Interpretation Comments Basophils (%) (Auto) (test code = 706-2) 0.4 % 0.0-1.0 [facility] HospitalFluoroscopic procedure less than one hour fzvxmodx9578-64-40 18:55:00* Test Item Value Reference Range Interpretation Comments IM GRANULOCYTES % (test code = IM GRANULOCYTES %) 0.6 % 0.0- 1.0 [facility] HospitalAutomated blood neutrophil count 2020-04-02 18:55:00* Test Item Value Reference Range Interpretation Comments Neutrophils # (Auto) (test code = 751-8) 5.0 2.1-6.9 [facility] HospitalBlood lymphocytes count (number/volume) 2020-04-02 18:55:00* Test Item Value Reference Range Interpretation Comments Lymphocytes # (Auto) (test code = 14178-7) 1.7 1.0-3.2 [facility] HospitalBlsteven [facility] monocytes automated count (number/volume)2020-04-02 18:55:00* Test Item Value Reference Range Interpretation Comments Monocytes # (Auto) (test code = 742-7) 0.9 0.2-0.8 [facility] HospitalAutomated blood eosinophil count 2020-04-02 18:55:00* Test Item Value Reference Range Interpretation Comments Eosinophils # (Auto) (test code = 711-2) 0.2 0.0-0.4 [facility] HospitalAutomated blood basophil count (count/volume)2020-04-02 18:55:00* Test Item Value Reference Range Interpretation Comments Basophils # (Auto) (test code = 704-7) 0.0 0.0-0.1 [facility] HospitalFluoroscopic procedure less than one hour eqaqntnp2750-49-66 18:55:00* Test Item Value Reference Range Interpretation Comments Absolute Immature Granulocyte (auto (elo t code = Absolute Immature Granulocyte (auto) 0.05 10*3/uL 0-0.1 [facility] HospitalProthrombin time (PT) in platelet poor plasma by coagulation gfjns8857-24-00 18:55:00* Test Item Value Reference Range Interpretation Comments Prothrombin Time (test code = 5902-2) 13.2 s 11.9-14.5 [facility] HospitalINR in Platelet poor plasma by Coagulation divaz1207-58-25 18:55:00* Test Item Value Reference Range Interpretation Comments Prothromb Time International Ratio (test code = 6301-6) 0.95 Oral Anticoagulant Therapy INR Values:1. Low Intensity Therapy 1.5 - 2.02 . Moderate Intensity Therapy 2.0 - 3.03. High Intensity Therapy(1) 2.5 - 3. 54. High Intensity Therapy(2) 3.0 - 4.05. Panic Value INR > 5.0 [facility] HospitalActivated partial thromboplastin time (aPTT) in platelet poor plasma by coagulation oznvx2185-05-12 18:55:00* Test Item Value Reference Range Interpretation Comments Activated Partial Thromboplast Time (test code = 86877-6) 27.9 s 23.8-35.5 [facility] plasma sodium measurement (moles/volume)2020-04-02 18:55:00* Test Item Value Reference Range Interpretation Comments Sodium Level (test code = 2951-2) 141 mmol/L 136-145 [facility] or plasma potassium measurement (moles/volume)2020-04-02 18:55:00* Test Item Value Reference Range Interpretation Comments Potassium Level (test code = 2823-3) 3.8 mmol/L 3.5-5.1 [facility] or plasma chloride measurement (moles/volume)2020-04-02 18:55:00* Test Item Value Reference Range Interpretation Comments Chloride Level (test code = 2075-0) 108 mmol/L 98-107 [facility] or plasma carbon dioxide, total measurement (moles/volume)2020-04-02 18:55:00* Test Item Value Reference Range Interpretation Comments Carbon Dioxide Level (test code = 2028-9) 25 mmol/L 22- [facility] or plasma anion pct5699-02-84 18:55:00* Test Item Value Reference Range Interpretation Comments Anion Gap (test code = 80663-4) 11.8 mmol/L 8-16 [facility] or plasma urea nitrogen measurement (mass/volume)2020-04-02 18:55:00* Test Item Value Reference Range Interpretation Comments Blood Urea Nitrogen (test code = 3094-0) 19 mg/dL 7- [facility] or plasma creatinine measurement (mass/volume)2020-04-02 18:55:00* Test Item Value Reference Range Interpretation Comments Creatinine (test code = 2160-0) 0.88 mg/dL 0.72-1.25 [facility] or plasma urea nitrogen/creatinine mass wvzeu2790-67-45 18:55:00* Test Item Value Reference Range Interpretation Comments BUN/Creatinine Ratio (test code = 3097-3) 22 6- [facility] HospitalEstimated glomerular filtration rate (GFR) wwbvytzzskycm9215-29-91 18:55:00* Test Item Value Reference Range Interpretation Comments Estimat Glomerular Filtration Rate (test code = 879815808) > 60 mL/ min >60 Ranges were taken from the National Kidney Disease Education Program and the [facility] Kidney Foundation literature.Reference ranges:60 or greater: Jcuwgj88-83 ( for 3 consecutive months): Chronic kidney disease 15 or less: Kidney failureUT Southwestern William P. Clements Jr. University HospitalGlucose aijysuduzue2759-12-72 18:55:00* Test Item Value Reference Range Interpretation Comments Glucose Level (test code = JRF9082) 129 mg/dL 74-118 [facility] or plasma calcium measurement (mass/volume)2020-04-02 18:55:00* Test Item Value Reference Range Interpretation Comments Calcium Level (test code = 51659-9) 9.3 mg/dL 8.4-10.2 [facility] or plasma total bilirubin measurement (mass/volume)2020-04-02 18:55:00* Test Item Value Reference Range Interpretation Comments Total Bilirubin (test code = 1975-2) 0.4 mg/dL 0.2-1.2 [facility] HospitalFluoroscopic procedure less than one hour unfrqtjb6805-09-79 18:55:00* Test Item Value Reference Range Interpretation Comments Aspartate Amino Transf (AST/SGOT) (test code = Aspartate Amino Transf (AST/SGOT)) 23 [IU]/L 5-34 [facility] or plasma alanine aminotransferase measurement (enzymatic activity/volume)2020-04-02 18:55:00* Test Item Value Reference Range Interpretation Comments Alanine Aminotransferase (ALT/SGPT) (test code = 1742-6) 20 [IU]/L 0-55 [facility] or plasma protein measurement (mass/volume)2020-04-02 18:55:00* Test Item Value Reference Range Interpretation Comments Total Protein (test code = 2885-2) 6.9 g/dL 6.5-8.1 [facility] or plasma albumin measurement (mass/volume)2020-04-02 18:55:00* Test Item Value Reference Range Interpretation Comments Albumin (test code = 1751-7) 3.8 g/dL 3.5-5.0 [facility] HospitalPlasma globulin measurement (mass/volume) 2020-04-02 18:55:00* Test Item Value Reference Range Interpretation Comments Globulin (test code = 05539-0) 3.1 g/dL 2.3-3.5 [facility] or plasma albumin/globulin mass aslno3704-82-71 18:55:00* Test Item Value Reference Range Interpretation Comments Albumin/Globulin Ratio (test code = 1759-0) 1.2 0.8-2.0 [facility] or plasma alkaline phosphatase measurement (enzymatic activity/volume)2020-04-02 18:55:00* Test Item Value Reference Range Interpretation Comments Alkaline Phosphatase (test code = 6768-6) 95 [IU]/L 40-150 [facility] HospitalMYOCARDIAL PERFUSION SPECT REST/STRES POPBGSYQ0829-21-63 13:54:00MYOCARDIAL PERFUSION SPECT REST/STRES MULTIPLE Myocardial Perfusion Report SYED ABDI Age: 64 Gender: M : 1955 Exam Date: 01/29/2020 07:51 Exam Location: [facility] Ordering Phys: LIEN FUCHS Referring Phys: Reading Phys: Belkis Ramon MD Fellow Phys: Fellow Phys: Resident: Technologist: Chastity Juárez Reason For Exam: Indications: Chest Pain ICD-9 Codes: Exam Type: MYOCARDIAL PERFUSION SPECT REST/STRES MULTIPLE Procedure CPT: 62296 Additional CPT: BP: / HR: Risk Factors: Previous Cardiac Procedures: Cardiac History: Pertinent Meds: Meds past 24 hrs: Pretest Chest Pain: CARDIOLOGY STRESS TEST Pharmacologi Cardiology exercise stress test results pending under separate report. Please look in EPIC under the Procedures Tab in Chart Review. IMAGE PROTOCOL Rst/Str 1 Day Radiopharmaceutical Dose (mCi) Duration (min) Img Date Img Time Rest: Tc-99m 10 REST DATE Tetrofosmin Stress: Tc-99m 30 STRESS DATE Tetrofosmin Administration Site: Right antecubital fossa SPECT RESULTS Technical Quality: Adequate Raw Data Analysis: Adequate Stress Perfusion Rest Perfusion Summed Stress Score:26 Summed Rest Score: 25 Summed Difference Score: 1 0 - Normal 2 - Abnormal Uptake 4 - Absent 1 - Mildly Reduced Uptake 3 - Severely Reduced Tracer Uptake X - Not Interpretable RV: Small sized, partially reversible, decreased uptake of moderate severity in the mid anterior (LAD) segment during post stress images Medium sized, nonreversible, decreased uptake of severe severity in the infe rior (RCA) segments during post stress images Large sized, nonreversible, decre ased uptake of severe severity in the apical lateral (LCX), inferolateral (LCX ) and anterolateral (LCX) segments during post stress images FUNCTION (calcu lated via Gated SPECT) Resting LV EF: % EDV: 240 ml (7 0-100 ml) Post Stress LV EF: 23 % TID: 1.07 ESV: m l (30-50 ml) Technical Quality: LV Size & Function: Reduced left ventricular ejection fraction. LV Regional Function: Severely reduced left ventricular systolic function. There is global wall hypokinesis. Other Findings: Variable Not Implemented IMPRESSIONS 1. New focus of small-sized moderate-severity reversible ischemia of the mid anterior wall (LAD distribution). SDS = 1 2. Transmural infarction of the inferior, inferolateral, lateral, and anterolateral beltran. 3. Global left ventricular wall h ypokinesis with reduced left ventricular systolic function, EF 23%. TID = 1.07 [place] Control: Do not remove! Belkis Ramon MD (Electronically Signed) F inal Date: 29 January 2020 13:53 [facility] TREADMILL STRESS-TRACING [id number] 10:26:58Stress Test [facility] Test Date: 1583-07-36Ecz Name: SYED ABDI Department: [id number] ID: [id number] Room: Gender: Bumboater: JOSE DANIEL: 1955 Requested By: RICKEY GRIGGS WOrder Number: [id number] Reading MD: Rickey GRIGGS Interpretive StatementsDESCRIPTION OF TESTThe patient was stressed by intravenous regadenoson 0.4 mg/5ml, infused over70 seconds. SYMPTOMSNo cardiac symptoms were reported during stress in the recovery period. TEST TERMINATIONRegadenoson infusion protocol was completed. HEART RATE RESPONSEThe heart rate toya from 53 beats/min at rest to a maximum of 99 beats/minduring stress, which is 74 % of the predicted maximum heart rate. The post recovery heart rate was normal. This response is normal for regadenoson. BLOOD PRESSURE RESPONSEThe blood pressure toya from 137/74 at rest to 150/71 during stress. RESTING ECGThe resting ECG showed sinus bradycardia, IVCD, old inferior and lateralmyocardial infarction and no significant ST changes. STRESS ECGA. No significant ST or T-wave changes were noted with stress. ARRYTHMIASRare VPBs are noted during the study. CONCLUSIONNormal hemodynamic regadenoson test with normal response to stress. Abnormal resting ECG.Negative electrocardiographic Lexiscan test by strict ST segment criteria.Nuclear scan results pending under separate report per radiolo gy department.Correlation with those images is advised. Electronically Signed On 01-29-2020 10:26:52 CDT by Rickey GRIGGSSelect [facility] CincinnatiTRANSTHORACIC ECHO (TTE) 2019-12-25 12:32:00TRANSTHORACIC ECHO (TTE) Transthoracic Echo Report SYED ABDI Age: 64 Gender: M : 1955 Exam Date: 12/25/2019 07:06 Exam Location: [facility] Echo Ordering Phys: JONY BRAGA V Referring Phys: JONY BRAGA V Reading Phys: Lien Fuchs Fellow Phys: Fellow Phys: Inorganic Chemistry Professor: Lino Ponce Reason For Exam: Indications: heart failure, systoic. ICD-9 Codes: Exam Type: TRANSTHORACIC ECHO (TTE) Procedure CPT: 29821 Addtional CPT: Ht (in): 71 BSA: 2.05 HR: 60 Rhythm: Sinus rhythm Wt (lb): 183 BP: 130 / 75 Technical Quality: Difficult History: MEASUREMENTS Normal ranges based on 95% confidence intervals for adults, some normal patients may fall outside of this range especially when indexing for BSA 2D ECHO LV Diastolic Diameter PLAX 6 cm 4.2-5.8 (M) / 3.8-5.2 (F) LV Systolic Diameter PLAX 5.2 cm 2.5-4.0 (M) / 2.2-3.5 (F) LV Fractional Shortening PLAX 13.2 % IVS Diastolic Thickness 1.3 cm 0.6-1.0 (M) / 0.6-0.9 (F) IVS Systolic Thickness 1.6 cm LVPW Diastolic Thickness 0.92 cm 0.6-1.0 (M) / 0.6-0.9 (F) LVPW Systolic Thickness 0.98 cm LV Relative Wall Thickness 0.36 <= 0.42 LVOT Diameter 2.5 cm Aortic Root Diameter 3.5 cm LA Systolic Diameter LX 5 cm LA Ao Ratio 1.4 LV Diastolic Volume MOD BP 172 cm 62-150 cm (M) / 46-106 cm (F) LV Systolic Volume MOD BP 106 cm 21-61 cm (M) / 14-42 cm (F) LV Ejection Fraction MOD BP 38.2 % 52-72 (M) / 54-74 (F) LV Stroke Volume MOD BP 65.9 cm LV Cardiac Output MOD BP 3954 cm/min LV Cardiac Index MOD BP 1930 cm/minm2 LA Volume 62 cm LA Volume Index 30.3 cm/m2 16 - 34 cm/m2 LV Mass by linear method 274 g LV Mass by linear method Index 134 g/m2 DOPPLER AV Peak Velocity 149 cm/s AV Peak Gradient 8.9 mmHg AV Mean Velocity 99.7 cm/s AV Mean Gradient 5 mmHg AV Velocity Time Integral 28.6 cm LVOT Peak Velocity 98.3 cm/s LVOT Peak Gradient 3.9 mmHg LVOT Mean Velocity 61.1 cm/s LVOT Mean Gradient 2 mmHg LVOT Velocity Time Integral 18.9 cm LVOT Stroke Volume 92.8 cm AV Area Cont Eq vti 3.2 cm2 AV Area Cont Eq pk 3.2 cm2 Mitral E Point Velocity 51.4 cm/s Mitral A Point Velocity 110 cm/s Mitral E to A Ratio 0.47 MV Deceleration [place] 151 cm/s2 MV Pressure Half Time 100 ms MV Area PHT 2.2 cm2 MV Deceleration Time 342 ms PV Peak Velocity 111 cm/s PV Peak Gradient 4.9 mmHg RVOT Peak Velocity 69.4 cm/s RVOT Peak Gradient 1.9 mmHg LV E' Lateral Velocity 6.6 cm/s Mitral E to LV E' Lateral Ratio 7.7 LV E' Septal Velocity 3.5 cm/s Mitral E to LV E' Septal Ratio 14.8 RV S' Velocity 12.1 cm/s >9.5 cm/s FINDINGS Left Ventricle The left ventricle is normal in size. Normal LV wall thickness. LV systolic function moderately decreased with regional wall motion abnormalities noted. Specifically, basal and mid anterior, anterolateral and inferolateral akinesis, inferior dyskinesis and anterior and anteroseptal hypokinesis. LVEF is 34-39% by simpsons biplane method of discs. There is impaired LV relaxation with normal filling pressures. Right Ventricle The right ventricle is normal in size and systolic function. TAPSE is measured at 1.8 cm. Right Atrium The right atrium is normal in size. Left Atrium The left atrium is normal in size. IAS Mitral Valve Structurally normal mitral valve without significant stenosis or prolapse. There is no mitral regurgitation. Aortic Valve The aortic valve is trileaflet with mild cusp sclerosis. There is no aortic stenosis. There is no aortic regurgitation. Tricuspid Valve Structurally normal tricuspid valve without significant stenosis. There is trace tricuspid regurgitation. Pulmonic Valve Structurally normal pulmonic valve without significant stenosis. There is trace pulmonic regurgitation. Pericardium No pericardial effusion. Aorta Normal aortic root for body surface area. IVC The inferior vena cava is normal in size. CONCLUSIONS Technically difficult study. Optison contrast used for better endocardial border definition. Left ventricle is normal in size with moderately decreased systolic function. Ejection fraction is 30-34% by Bedolla's biplane method of discs. Regional wall motion abnormalities present as noted above. Impaired relaxation noted. Right ventricle is normal in size and systolic function. TAPSE is measured at 1.8 cm Both atria are normal in size. There is mild aortic cusp sclerosis, but no hemodynamically significant valvular disease appreciated. RVSP cannot be estimated due to lack of a sufficient regurgitant jet. No pericardial effusion. When compared to the prior study in March 2018, there appears to be a mild improvement in LV function. Lien Ekeruo (Electronically Signed) Final Date: 25 December 2019 12:32 2D ECHO LV Diastolic Diameter PLAX 6 cm 4.2-5.8 (M) / 3.8-5.2 (F) LV Systo lic Diameter PLAX 5.2 cm 2.5-4.0 (M) / 2.2-3.5 (F) LV Fr actional Shortening PLAX 13.2 % IVS Diastolic Thickness 1.3 cm 0.6-1.0 (M) / 0.6-0.9 (F) IVS Systolic Thickness 1.6 cm LVPW Diastolic Thickness 0.92 cm 0.6-1.0 (M) / 0.6-0.9 (F) LVPW Systolic Thickness 0.98 cm LV Relative Wall Thickness 0.36 <= 0.42 LVOT Diameter 2.5 cm Aortic Root Diameter 3.5 cm LA Systolic Diameter LX 5 cm LA Ao Ratio 1.4 LV Diastolic Volume MOD BP 172 cm 62-150 cm (M) / 46-106 cm (F) LV Systolic Volume MOD BP 106 cm 21-61 cm (M) / 14-42 cm (F) LV Ejection Fraction MOD BP 38.2 % 52 -72 (M) / 54-74 (F) LV Stroke Volume MOD BP 65.9 cm LV Cardiac Output MOD BP 3954 cm/min LV Cardiac Index MOD BP 1930 cm/minm2 LA Volume 62 cm LA Volume Index 30.3 cm/m2 16 - 34 cm/m2 LV Mass by linear method 274 g LV Mass by linear method Index 134 g/m2 DOPPLER AV Peak Velocity 149 cm/s AV Peak Gradient 8.9 mmHg AV Mean Velocity 99.7 cm/s AV Mean Gradient 5 mmHg AV Velocity Time Integral 28.6 cm LVOT Peak Velocity 98.3 cm/s LVOT Peak Gradient 3.9 mmHg LVOT Mean Veloci ty 61.1 cm/s LVOT Mean Gradient 2 mm Hg LVOT Velocity Time Integral 18.9 cm LV OT Stroke Volume 92.8 cm AV Area Cont Eq vti 3.2 cm2 AV Area Cont Eq pk 3.2 cm2 Mitral E Point Velocity 51.4 cm/s Mitral A Point Velocity 110 cm/s Mitral E to A Ratio 0.47 MV Deceleration [place] 151 cm/s2 MV Pressure Half Time 100 ms MV Area PHT 2.2 cm2 MV Deceleration Time 342 m s PV Peak Velocity 111 cm/s PV Peak Gradient 4.9 mmHg RVOT Peak Velocity 69.4 cm/s RVOT Peak Gradient 1.9 mmHg LV E' Lateral Velocity 6.6 cm/s Mitral E to LV E' Lateral Ratio 7.7 LV E' Septal Velocity 3.5 cm/s Mitral E to LV E' Septal Ratio 14.8 RV S' Velocity 12.1 cm/s >9.5 cm/[facility] [id number] 15:45:03IMPRESSION: No acute thoracic abnormality. Dictated By: Tino Alvarez MD, 08/07/2019 1:52 PM I have reviewed the study and agree with the findings in this report. Signed By: Wendie Sifuentes MD, 08/07/2019 3:45 PM Interface, Rad/Mammog In - 08/07/2019 3:50 PM CDTEXAMINATION: XRAY CHEST 2 VIEWS INDICATION: Short of breath COMPARISON: Chest radiograph 02/18/2016 FINDINGS:TUBES and LINES: None.LUNGS: Lungs are well inflated. Lungs are clear. There is no evidenceof pneumonia or pulmonary edema.PLEURA: No pleural effusion or pneumothorax.HEART AND MEDIASTINUM: The cardiomediastinal silhouette isunremarkable.BONES AND SOFT TISSUES: No acute osseous lesion. Soft tissues areunremarkable.UPPER ABDOMEN: No free air under the diaphragm.IMPRESSIONIMPRESSION: No acute thoracic abnormality. Dictated By: Tino Alvarez MD, 08/07/2019 1:52 PMI have review ed the study and agree with the findings in this report.Signed By: Wendie Whitman MD, 08/07/2019 3:45 [facility]
--- OUTSIDE RECORDS SUMMARY | 2020-04-10 22:07 | XMS REPORT | Clinical Summary ---
Author Author [facility] Organization [facility] Address Unknown Phone Unavailable Care Team Providers Care Floor Renovator Name Role Phone Zacarias-Lilia Mccain MD PCP [phone] Jony Braga MD PCP Allergies No Known Allergies Medications End Date Status Medication Sig Dispensed Refills Start Date Active polyethylene glycol Add lukewarm 4000 mL 0 09/07 (GOLYTELY) 236-22.74-6.74 drinking 7 -5.86 gram oral water to the solutionIndications: fill cherelle (4 Rectal bleeding liters) and shake. Drink as directed by your doctor.. Active meclizine (ANTIVERT) 25 Take 1 tablet 40 tablet 0 mg TabIndications: by mouth 3 7 Vertigo times daily as needed ((For dizziness)). Active gabapentin (NEURONTIN) Take 1 270 capsule 3 400 mg capsule by 8 capsuleIndications: mouth 3 times Cervical neck pain with daily (incr) evidence of disc disease (d/c 300 mg). Active zinc oxide 15 % Apply 1 1 Tube 1 CreaIndications: Application 8 Paronychia of great toe to affected of right foot area 2 times daily. Active acetaminophen-codeine Take 1 tablet 15 tablet 0 (TYLENOL/CODEINE #3) by mouth 8 300-30 mg per daily as tabletIndications: needed for Chronic tension-type Pain. headache, intractable Active amitriptyline (ELAVIL) 25 Take 1 tablet 90 tablet 1 mg tabletIndications: by mouth at 9 Cervical muscle pain bedtime nightly. Active tiZANidine (ZANAFLEX) 4 Take 1 tablet 90 tablet 1 mg tabletIndications: by mouth 9 Cervical muscle pain every 12 hours as needed for Muscle Spasms. Active clopidogreL (PLAVIX) 75 Take 1 tablet 90 tablet 3 mg tabletIndications: CAD by mouth 0 in ruby artery daily. Active atorvastatin (LIPITOR) 80 Take 1 tablet 90 tablet 3 mg tabletIndications: CAD by mouth at 0 in ruby artery bedtime nightly. Active isosorbide mononitrate Take 1 tablet 90 tablet 3 0 (IMDUR) 30 mg extended by mouth 0 release daily. tabletIndications: CAD in ruby artery Active spironolactone Take 1 tablet 90 tablet 3 (ALDACTONE) 25 mg by mouth 0 tabletIndications: CAD in daily. ruby artery Active famotidine (PEPCID) 20 mg Take 1 tablet 180 tablet 3 tabletIndications: by mouth 2 0 Gastroesophageal reflux times daily. disease, esophagitis presence not specified Active metFORMIN (GLUCOPHAGE XR) Take 1 tablet 90 tablet 3 500 mg ER extended by mouth 0 release daily (with tabletIndications: breakfast). Elevated hemoglobin A1c, Prediabetes Active mometasone (NASONEX) 50 2 Sprays by 17 g 5 mcg/actuation nasal each nostril 0 sprayIndications: route daily. Allergic rhinitis, unspecified seasonality, unspecified trigger Active nitroGLYCERIN (NITROSTAT) Dissolve 1 50 tablet 3 0.4 mg sublingual tablet under 0 tabletIndications: CAD in the tongue ruby artery, Chest every 5 pain, unspecified type minutes as needed, up to 3 times. If chest pain persists, call 911. 01/08/2021 Active metoprolol succinate Take 1 tablet 30 tablet 11 (TOPROL XL) 25 mg by mouth 0 extended release daily for 360 tabletIndications: CAD in days. ruby artery 01/08/2021 Active lisinopriL (PRINIVIL, Take 1 tablet 30 tablet 11 ZESTRIL) 20 mg by mouth 0 tabletIndications: CAD in daily for 360 ruby artery days. 08/07/2019 Discontinued (Reorder) clopidogrel (PLAVIX) 75 Take 1 tablet 90 tablet 3 mg tabletIndications: CAD by mouth 9 in ruby artery daily. 08/07/2019 Discontinued (Reorder) atorvastatin (LIPITOR) 80 Take 1 tablet 90 tablet 3 mg tabletIndications: CAD by mouth at 9 in ruby artery bedtime nightly. 08/07/2019 Discontinued (Reorder) isosorbide mononitrate Take 1 tablet 90 tablet 3 0 (IMDUR) 30 mg extended by mouth 9 release daily. tabletIndications: CAD in ruby artery 08/07/2019 Discontinued (Reorder) lisinopril (PRINIVIL) 5 Take 2 90 tablet 3 mg tabletIndications: CAD tablets by 9 in ruby artery mouth daily. 08/07/2019 Discontinued (Reorder) spironolactone Take 1 tablet 90 tablet 3 (ALDACTONE) 25 mg by mouth 9 tabletIndications: CAD in daily. ruby artery 08/07/2019 Discontinued (Reorder) famotidine (PEPCID) 20 mg Take 1 tablet 180 tablet 3 tabletIndications: by mouth 2 9 Gastroesophageal reflux times daily. disease, esophagitis presence not specified 08/07/2019 Discontinued (Reorder) metFORMIN (GLUCOPHAGE XR) Take 1 tablet 90 tablet 1 500 mg ER extended by mouth 9 release daily (with tabletIndications: breakfast). Elevated hemoglobin A1c, Prediabetes 01/07/2020 Discontinued (Reorder) lisinopriL (PRINIVIL) 5 Take 2 90 tablet 3 mg tabletIndications: CAD tablets by 0 in ruby artery mouth daily. 01/14/2020 Discontinued lisinopriL (PRINIVIL) 5 Take 2 180 tablet 3 mg tabletIndications: CAD tablets by 0 in ruby artery mouth daily. 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 12/23/2015 Encounters Care Team Description Date Type Specialty Denis Nelson MD 02/17/2020 Orders Only Cardiology Lien Fuchs MD 02/12/2020 Orders Only Cardiology Lien Fuchs MD 02/12/2020 Orders Only Cardiology Jony Braga MD 01/29/2020 Hospital Radiology Encounter Lien Fuchs MD CAD in ruby artery 01/14/2020 Office Visit Cardiology Lien Fuchs MD 01/14/2020 Orders Only Cardiology Jony Braga MD Chest pain, unspecified type (Primary Dx ); CAD in ruby artery 01/07/2020 Telephonic Family Practice Encounter Jony Braga MD 12/25/2019 Hospital Cardiology Encounter Jony Braga MD Chronic systolic heart failure 08/07/2019 Ancillary Radiology Procedure Jony Braga MD Chronic systolic heart failure (Primary Dx); CAD in ruby artery; Gastroesophageal reflux disease, esophagitis presence not specified; Elevated hemoglobin A1c; Prediabetes; Plantar fascial fibromatosis of left foot; Healthcare maintenance; Allergic rhinitis, unspecified seasonality, unspecified trigger 08/07/2019 Office Visit Family Practice Jony Braga MD 08/07/2019 Orders Only Family Practice after 04/10/2019 Immunizations Name Administration Dates Next Due Herpes Zoster Vaccine In 06/03/2016 Clinic Influenza Vaccine 05/20/2016 02/10/2017 Influenza, Vaccine 05/03/2018 <FLUCELVAX>(Preservative- Free) PPV 23 (Pneumococcal 11/21/2017 Polysaccharide 23 Valent) Social History Date Tobacco Use Types Packs/Day Years Used Never Smoker Smokeless Tobacco: Never Used Tobacco Cessation: Counseling Given: No Drinks/Week oz/Week Comments Alcohol Use 0 Standard drinks or equivalent 0.0 No Food Insecurity Answer Date Recorded Within the past 12 months, you worried that your Never alysha e 01/10/2018 food would run out before you got money to buy more. Within the past 12 months, the food you bought Never true 01/10/2018 just didn't last and you didn't have mo olamide to get more. Sex Assigned at Date Recorded Not on file Industry Job Start Date Occupation Not on file Not on file Not on file Travel End Travel History Travel Start No recent travel history available. Last Filed Vital Signs Reading Time Taken Comments Vital Sign 142/87 01/29/2020 9:24 AM CDT Blood Pressure 52 01/29/2020 9:25 AM CDT Pulse 37.2 C (99 F) 01/14/2020 10:45 AM CDT Temperature 23 01/29/2020 9:25 AM CDT Respiratory Rate 100% 01/29/2020 9:25 AM CDT Oxygen Saturation - - Inhaled Oxygen Concentration 88.5 kg (195 lb) 01/29/2020 7:54 AM CDT Weight 180.3 cm (5' 11") 01/29/2020 7:54 AM CDT Height 27.2 01/29/2020 7:54 AM CDT Body Mass Index Plan of Treatment Care Team Description Date Type Specialty 05/11/2020 Office Visit Cardiology Health Maintenance Due Date Last Done Comments CORONARY ARTERY DISEASE 12/18/2019 12/17/2018, AGE 18 AND UP 12/07/2016, 06/20/2016, Additional history exists IMM Influenza Seasonal 02/27/2020 05/03/2018, Oct to July (>/= 19 yrs) 05/20/2016 Colonoscopy 10yr 09/12/2026 09/12/2016 Procedures Comments Procedure Name Priority Date/Time Associated Diag nosis MYOCARDIAL PERFUSION MYCHAL 01/29/2020 CAD in na tive artery SPECT REST/STRES MULTIPLE 10:25 AM CDT ECHG STRESS TREADMILL - 01/29/2020 TRACING ONLY (PROSOLVE) 9:10 AM CDT ECHG NON-INVASIVE PROC Routine 12/25/2019 Chronic systolic heart ECHOCARDIOGRAM 2-D W/O 7:06 AM CDT failure CONTRAST (PROSOLVE) FECAL OCCULT BLOOD Routine 08/14/2019 Healthcare maintenance 1:35 PM CDT XRAY CHEST 2 VIEWS Routine 08/07/2019 Chronic sys tolic heart 1:04 PM CDT failure after 04/10/2019 Results * MYOCARDIAL PERFUSION SPECT REST/STRES MULTIPLE (01/29/2020 10:25 AM CDT) MYOCARDIAL Myocardial Perfusion SMS PERFUSION SPECT Report REST/STRES DAVIAN ABDI MULTIPLE Age: 64 Gender: M : 1955 Exam Date: 01/29/2020 07:51 Exam Location: [facility] Nuc Ordering Phys: LIEN FUCHS Referring Phys: Reading Phys: Belkis Ramon MD Fellow Phys: Fellow Phys: Resident: Technologist: Chastity Juárez Reason For Exam: Indications: Chest Pain ICD-9 Codes: Exam Type: MYOCARDIAL PERFUSION SPECT REST/STRES MULTIPLE Procedure CPT: 90342 Additional CPT: BP: / HR: Risk Factors: [...] decreased uptake of severe severity in the inferior (RCA) segments during post stress images Large sized, nonreversible, decreased uptake of severe severity in the apical lateral (LCX), inferolateral (LCX) and anterolateral (LCX) segments during post stress images FUNCTION (calculated via Gated SPECT) Resting LV EF: % EDV: 240 ml (70-100 ml) Post Stress LV EF: 23 % TID: 1.07 ESV: ml (30-50 ml) Technical Quality: LV Size & [...] anterolateral beltran. 3. Global left ventricular wall hypokinesis with reduced left ventricular systolic function, EF 23%. TID = 1.07 [place] Control: Do not remove! 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 SYMPTOMS No cardiac symptoms were reported during stress in the recovery period. TEST TERMINATION Regadenoson infusion protocol was completed. HEART RATE RESPONSE The heart rate toya from 53 beats/min at rest to a maximum of 99 beats/min during stress, which is 74 % of the predicted maximum heart rate. The post recovery heart rate was normal. This response is normal for regadenoson. BLOOD PRESSURE RESPONSE The blood pressure toya from 137/74 at rest to 150/71 during stress. RESTING ECG The resting ECG showed sinus bradycardia, IVCD, old inferior and lateral myocardial infarction and no significant ST changes. STRESS ECG A. No significant ST or T-wave changes were noted with stress. ARRYTHMIAS Rare VPBs are noted during the study. CONCLUSION Normal hemodynamic regadenoson test with normal response to stress. Abnormal resting ECG. Negative electrocardiographic Lexiscan test by strict ST segment criteria. Nuclear scan results pending under separate report per radiology department. Correlation with those images is advised. Electronically Signed On 01-29-2020 10:26:52 CDT by Rickey GRIGGS Specimen Performing Organization Address [facility] Ph one Number SMS * TRANSTHORACIC ECHO (TTE) (12/25/2019 7:06 AM CDT) TRANSTHORACIC Transthoracic [facility] ECHO (TTE) Echo Report DAVIAN ABDI Age: 64 Gender: M : 1955 Exam Date: 12/25/2019 07:06 Exam Location: [facility] Ordering Phys: JONY BRAGA V Referring Phys: BRAGA, JONY V Reading Phys: Lien Fuchs Fellow Phys: Fellow Phys: Hooker Operator: Lino Ponce Reason For Exam: Indications: heart failure, systoic. ICD-9 Codes: Exam Type: TRANSTHORACIC ECHO (TTE) Procedure CPT: 88353 Addtional CPT: Ht (in): 71 BSA: 2.05 [...] cm/min LV Cardiac Index MOD BP 1930 cm/minm LA Volume 62 cm LA Volume Index 30.3 cm/m 16 - 34 cm/m LV Mass by linear method 274 g LV Mass by linear method Index 134 g/m DOPPLER AV Peak Velocity 149 cm/s AV [...] cm AV Area Cont Eq vti 3.2 cm AV Area Cont Eq pk 3.2 cm Mitral E Point Velocity 51.4 cm/s Mitral A Point Velocity 110 cm/s Mitral E to A Ratio 0.47 MV Deceleration [place] 151 cm/s MV Pressure Half Time 100 ms MV Area PHT 2.2 cm MV Deceleration Time 342 ms PV Peak [...] cm/min LV Cardiac Index MOD BP 1930 cm/minm LA Volume 62 cm LA Volume Index 30.3 cm/m 16 - 34 cm/m LV Mass by linear method 274 g LV Mass by linear method Index 134 g/m DOPPLER AV Peak Velocity 149 cm/s AV [...] cm AV Area Cont Eq vti 3.2 cm AV Area Cont Eq pk 3.2 cm Mitral E Point Velocity 51.4 cm/s Mitral A Point Velocity 110 cm/s Mitral E to A Ratio 0.47 MV Deceleration [place] 151 cm/s MV Pressure Half Time 100 ms MV Area PHT 2.2 cm MV Deceleration Time 342 ms PV Peak Velocity 111 cm/s PV Peak Gradient 4.9 mmHg RVOT Peak Velocity 69.4 cm/s RVOT Peak Gradient 1.9 mmHg LV E' Lateral Velocity 6.6 cm/s Mitral E to LV E' Lateral Ratio 7.7 LV E' Septal Velocity 3.5 cm/s Mitral E to LV E' Septal Ratio 14.8 RV S' Velocity 12.1 cm/s >9.5 cm/s Specimen Performing Organization Address [facility] one Number [facility] * Fecal Occult Blood (08/14/2019 1:35 PM CDT) Occult Blood Negative Negative [facility] Specimen Stool - Feces Performing Organization Address [facility] one Number [facility] [address] [place] [address] [facility] * XRAY CHEST 2 VIEWS (08/07/2019 1:04 PM CDT) Specimen Impressions Performed At IMPRESSION: [facility] No acute thoracic abnormality. Dictated By: Tino Alvarez MD, 07/27 1:52 PM I have reviewed the study and agree wit h the findings in this report. Signed By: Wendie Sifuentes MD, 08/07/2019 3:45 PM Narrative Performed At EXAMINATION: XRAY CHEST 2 VIEWS [facility] INDICATION: Short of breath COMPARISON: Chest radiograph 6 FINDINGS: TUBES and LINES: None. LUNGS: Lungs are well inflated. Lungs are clear. There is no evidence of pneumonia or pulmonary edema. PLEURA: No pleural effusion or pneumo thorax. HEART AND MEDIASTINUM: The cardiomedi astinal silhouette is unremarkable. BONES AND SOFT TISSUES: No acute osse ous lesion. Soft tissues are unremarkable. UPPER ABDOMEN: No free air under the di aphragm. Procedure Note Interface, Rad/Mammog In - 08/07/2019 3:50 PM CDT EXAMINATION: XRAY CHEST 2 VIEWS INDICATION: Short of breath COMPARISON: Chest radiograph 02/18/2016 FINDINGS: TUBES and LINES: None. LUNGS: Lungs are well inflated. Lungs are clear. There is no evidence of pneumonia or pulmonary edema. PLEURA: No pleural effusion or pneumothorax. HEART AND MEDIASTINUM: The cardiomediastinal silhouette is unremarkable. BONES AND SOFT TISSUES: No acute osseous lesion. Soft tissues are unremarkable. UPPER ABDOMEN: No free air under the diaphragm. IMPRESSION IMPRESSION: No acute thoracic abnormality. Dictated By: Tino Alvarez MD, 08/07/2019 1:52 PM I have reviewed the study and agree with the findings in this report. Signed By: Wendie Sifuentes MD, 08/07/2019 3:45 PM Performing Organization Address City/State/Zipcode Ph one Number SMS after 04/10/2019 Insurance Type Payer Benefit Subscriber ID Effective Phone Address Plan / Dates Group [email or web address] [place] [employer] Spreedly xxxxxxxx 2020-P [address] [facility] [address] [place] [address] [facility] SELF-PAY SELF-PAY xxxxxxx 2020- [phone] [address] [place] [address]
--- OUTSIDE RECORDS SUMMARY | 2020-04-10 22:07 | XMS REPORT | Continuity of Care Document ---
Author Author Anthony Sewell Cytoo SYED Raymundo [employer] Information Contacts+ Address Unknown Phone Unavailable Care Team Providers Care Non Food Receiving Clerk Name Role Phone [employer] Unavailable Un available Problems Problem Status Onset Date Classification Date Reported Comments Source Myocardial infarction Active Problem 07/09/2015 [facility] Diabetes mellitus Active Problem 07/09/2015 [facility] Coronary atherosclerosis of [place] coronary vessel Active Problem 07/09/2015 [facility] Ankle pain Active Problem 07/09/2015 [facility] Medications Medication Details Route Status Patient Instructions Ordering Provider Order Date Source lisinopril 1 tab(s) orally Active 5 mg orally once a day at night [place] 06/01/2015 [facility] clopidogrel 1 tab(s) orally Active 75 mg orally once a day [facility] atorvastatin 1 tab(s) orally Active 40 mg orally once a day (at bedtime) [facility] metformin 1 tab(s) orally Active 500 mg orally [address] [facility] multivitamin 1 cap(s) orally Active Multiple Vitamins orall y once a day [facility] aspirin 1 tab(s) orally Active 325 mg orally once a da y [facility] Allergies, Adverse Reactions, Alerts Substance Category Reaction Severity Reaction type Status Date Reported Comments Source N.K.D.A. Adverse Reaction Info Not Available Adverse Reaction Active 06/10/2015 [facility] Immunizations No Data Provided for This Section Results No Data Provided for This Section Pathology Reports No Data Provided for This Section Diagnostic Reports No Data Provided for This Section Consultation Notes No Data Provided for This Section Discharge Summaries No Data Provided for This Section History and Physicals No Data Provided for This Section Vital Signs Vital Sign Value Date Comments Source Diastolic (mm Hg) 90 06/10/2015 [facility] Systolic (mm Hg) 140 06/10/2015 [facility] Weight 186.0 06/10/2015 [facility] Height 71.5 06/10/2015 [facility] Diastolic (mm Hg) 80 06/01/2015 [facility] Systolic (mm Hg) 120 06/01/2015 [facility] Weight 193.8 06/01/2015 [facility] Height 71.5 06/01/2015 [facility] Encounters Location Location Details Encounter Type Encounter Number Reason For Visit Attending Provider ADM Date DC Date Status Source [facility] Unknown [id number] 06/01/19 16 06/01/2015 [facility] Unknown [id number] 06/01/19 16 06/01/2015 [facility] Message [id number] 06/04/19 16 06/04/2015 [facility] Message [id number] 06/04/19 16 06/04/2015 [facility] Message [id number] 06/04/19 16 06/04/2015 [facility] Unknown [id number] 06/10/19 16 06/10/2015 [facility] Procedures No Data Provided for This Section Assessment and Plan No Data Provided for This Section Plan of Care No Data Provided for This Section Social History Social History Date Source Social History ElementQualifiersDate Rep orted Caffeine: no. Jun 10, 2015 Recreational drug use: no. Jun 10, 2015 Tobacco Use: . Smoking Status: never smoker Jun 10, 2015 Alcohol: socially. Jun 10, 2015 06/10/2015 [facility] Family History No Data Provided for This Section Advance Directives No Data Provided for This Section Functional Status No Data Provided for This Section
--- OUTSIDE RECORDS SUMMARY | 2020-04-10 22:07 | XMS REPORT | Clinical Summary ---
Author Author [facility] Organization [email or web address] Address Unknown Phone Unavailable Care Team Providers Care Acetaldehyde Converter Operator Name Role Phone Tramaine Dooley PCP Allergies Not on File Medications Not on file Active Problems Not on file Encounters Care Team Description Date Type Specialty Art Flores Shortness of breath (Primary Dx) 04/03/2020 Orders Only Lab after 04/10/2019 Social History Date Tobacco Use Types Packs/Day Years Used Never Assessed Sex Assigned at Date Recorded Not on file Last Filed Vital Signs Not on file Plan of Treatment Health Maintenance Due Date Last Done Comments COLON CANCER SCREENING 1956 COLONOSCOPY LIPID PANEL 1991 INFLUENZA VACCINE (#1) 2020 Medicare IPPE (WELCOME TO 01/28/2020 MEDICARE) Procedures Comments Procedure Name Priority Date/Time Associated Diag nosis SARS-COV2/RT-PCR ([facility] & Routine 04/03/2020 Short ness of breath REF LABS) 5:25 AM RADIO REPAIRER after 04/10/2019 Results * SARS-CoV2/RT-PCR ([facility] & Ref Labs) (04/03/2020 5:25 AM RADIO REPAIRER) SARS-COV2/RT-PC Negative Not Detected, [facility] ([employer]) R Negative, See [facility] external report for [facility] linked test SARS-COV-2 [facility] RAD[facility] PERFORMING LAB [facility] Specimen Other - Nasopharyngeal wall structure (body structure) Narrative Performed At Negative result for this test determine s that SARS-CoV-2 RNA was not present in [facility] the specimen above the Limit of Detecti on (LOD). However, Negative results do [facility] not preclude SARS-CoV-2 infection and s hould not be used as the sole basis for treatment or patient management jose ns. Negative results must be combined with clinical observations, patient his tory, and epidemiological information. A false negative result may occur if a sp ecimen is improperly collected, transported or handled. A false negat asa result should be considered if patient's recent exposures or clinical presentation indicate that COVID-19 (SARS-CoV-2) is likely and diagnostic t ests for other causes of illness are negative. Re-testing should be consid ered in cases of suspected false negatives. The limit of detection for this assay i s 100 copies/mL. This SARS CoV-2 test is a real-time RT- PCR test intended for the qualitative detection of nucleic acid from SARS-CoV -2 in a nasopharyngeal swab specimen collected from individuals suspected of COVID-19 by their healthcare provider. This test has not been Food and Drug Ad ministration (FDA) cleared or approved. This is a modified version of an appr yousif Emergency Use Authorization (EUA) and is in the process of review by the FDA. Once authorized by the FDA, the issued EUA will be effective until the declaration that circumstances exist justifying the authorization of the eli rgency use of in vitro diagnostic tests for detection and/or diagnosis of COVID -19 is terminated under Section 564(b)(2) of the Act or the EUA is revoked under Section 564(g) of the Act. Testing was performed using the Scott SARS-CoV-2 assay. Fact Sheet for Healthcare Providers: https://www.molecular.scott/sulaiman/RT_SAR H-KiD-4_MXU_Unie_Ltfwj_71-362823.pdf Fact Sheet for Healthcare Patients: https://www.molecular.scott/sulaiman/DT_DBQL-QvQ-5_Hakdmgy_Cpox_Tfotq_RO_71-990580A8 .pdf Performing Laboratory: [address] [place] [address] Performing Organization Address City/State/Zipcode Ph one Number [address] [facility] [facility] after 04/10/2019 Insurance Type Payer Benefit Subscriber ID Effective Phone Address Plan / Dates Group Maps Contracted [facility] [id number] 2020-P [employer] [id number]
== END 2020-04-10 22:00 | disposition home or self-care (01) ==
LOC: ER 19:47
DX: R10.31 Right lower quadrant pain (principal); Y84.0 Cardiac catheterization as the cause of abnormal reaction of the patient, or of later complication, without mention of misadventure at the time of the procedure; S30.1XXA Contusion of abdominal wall, initial encounter; I10 Essential (primary) hypertension; E11.9 Type 2 diabetes mellitus without complications; E78.5 Hyperlipidemia, unspecified; I50.9 Heart failure, unspecified; F32.9 Major depressive disorder, single episode, unspecified; I25.2 Old myocardial infarction
CPT/HCPCS: 93926; 99283